=== PATIENT | female | born 1990 | race Caucasian/White ===

== ENCOUNTER 2017-09-29 05:30 | Inpatient (IN) | payer BC ==
--- NOTE | 2017-09-27 09:45 | PCM.LDHP ---
L&D History of Present Illness - General Date of Service: 09/27/17 Admit Problem/Dx: Admission Diagnosis/Problem Admission Diagnosis/Problem Source of Information: Patient History Limitations: Reports: No Limitations - History of Present Illness Introduction:: 27 y/o JOHANN 10/05/2017 EGA at time of CS Wednesday09/29/2017 [id number]. Plan RCS 09/29/17. Two prior CS's. GBS status unknown but giving preop antibiotics Ancef which will cover GBS as well, just in case. 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: prior CS 04/05/2013 Psychiatric History: Reports: Anxiety - Past Surgical History Female Surgical History: Reports: Section Social & Family History - Tobacco Use Smoking Status *Q: Current Every Day Smoker Years of Tobacco use: 10 Packs/Tins Daily: 0.5 Used Tobacco, but Quit: Yes Month/Year Tobacco Last Used: 06/07/2013 Second Hand Smoke Exposure: Yes - Alcohol Use Days Per Week of Alcohol Use: 3 Number of Drinks Per Day: 2 Total Drinks Per Week: 6 - Recreational Drug Use Recreational Drug Use: No - Living Situation & Occupation Living situation: Reports: , with Family Occupation: Employed H&P Review of Systems - Review of Systems: Review Of Systems: See Below General: Reports: No Symptoms HEENT: Reports: No Symptoms Pulmonary: Reports: No Symptoms Cardiovascular: Reports: No Symptoms Gastrointestinal: Reports: No Symptoms Genitourinary: Reports: No Symptoms Musculoskeletal: Reports: No Symptoms Skin: Reports: No Symptoms Psychiatric: Reports: No Symptoms Neurological: Reports: No Symptoms Hematologic/Lymphatic: Reports: No Symptoms Immunologic: Reports: No Symptoms L&D Exam - Exam Exam: See Below - OB Specific Fundal Height In cm: 39 Movement: Active Heart Tones: Present Heart Tones per Min: 128 Heart Rate (FHR) Variability: Moderate (6-25 bmp) Presentation: Vertex - Exam General: Alert, Oriented HEENT: Conjunctiva Clear, Mucosa Moist & [place], PERRLA Neck: Supple, Trachea Midline Lungs: Clear to Auscultation, Normal Respiratory Effort Cardiovascular: Regular Rate, Regular Rhythm GI/Abdominal Exam: Normal Bowel Sounds, Soft, Non-Tender Back Exam: Normal Inspection, Full Range of Motion Extremities: Normal Inspection, Normal Range of Motion, Non-Tender, No Pedal Edema, Normal Capillary Refill Skin: Warm, Dry, Intact Neurological: Reflexes Equal Bilateral Psychiatric: Alert, Normal Affect, Normal Mood - Problem List (1) 39 weeks gestation of SNOMED Code(s): 36938726 ICD Code: Z3A.39 - 39 WEEKS GESTATION OF Status: Acute (2) delivery w/o mention of indication, love gordon SNOMED Code(s): 774868020 ICD Code: O82 - ENCOUNTER FOR DELIVERY WITHOUT INDICATION Status: Acute Problem List Initiated/Reviewed/Updated: No Assessment/Plan Comment:: Plan repeat CS
[~2017-09-29 05:30] MED LIST: Citric Acid/Sodium Citrate Solution 30 ML Cup PO ONE; Metoclopramide 10 MG/2 ML SDV IVPUSH ONE; Sodium Chloride 0.9% 10 ML Syringe FLUSH PRN
[2017-09-29] MEDS: Lactated Ringers 1,000 ML IV SCH ×2 (06:40→07:27)
[2017-09-29] MEDS ORDERED: Morphine PF 10 MG/10 ML SDV ONE (06:46)
[2017-09-29] MEDS ORDERED: Ondansetron 4 MG/2 ML SDV ONE (06:46)
[2017-09-29] MEDS ORDERED: Oxytocin 10 Units/1 ML SDV ONE (06:46)
[2017-09-29] MEDS ORDERED: Ketorolac 30 MG/ML SDV ONE (06:46)
[2017-09-29] MEDS ORDERED: Lactated Ringers 2,000 ML ONE (06:46)
[2017-09-29] MEDS ORDERED: ceFAZolin 1 GM Vial ONE (06:46)
[2017-09-29] MEDS ORDERED: Bupivacaine 0.75%/D5W 2 ML Amp ONE (06:48)
[2017-09-29] MEDS ORDERED: Bupivacaine 0.5% 30 ML SDV ONE (07:05)
--- NOTE | 2017-09-29 07:15 | PCM.PREANE ---
Preanesthetic Assessment - Anesthesia/Transfusion/Family Hx Anesthesia History: Prior Anesthesia Reaction Type of Anesthesia Reaction: Excessive Itching Family History of Anesthesia Reaction: No Transfusion History: No Prior Transfusion(s) - Review of Systems General: No Symptoms Pulmonary: No Symptoms, Other (Smoker. Last one this morning. ) Cardiovascular: No Symptoms Gastrointestinal: No Symptoms Neurological: Other (Back pain) Other: Reports: Anxiety - Physical Assessment NPO Status Date: 09/28/17 NPO Status Time: 23:59 Pulse: 114 O2 Sat by Pulse Oximetry: 100 Respiratory Rate: 15 Blood Pressure: 102/79 Temperature: 36.6 C Vital Signs: Last Vital Signs Temp 36.6 C 09/29/17 05:45 Pulse 114 H 09/29/17 05:45 Resp 15 09/29/17 05:45 BP 102/79 09/29/17 05:45 Pulse Ox 100 09/29/17 05:45 Weight: 53.07 kg ASA Class: 2 Mental Status: Alert & Oriented x3 Airway Class: Mallampati = 1 Dentition: Reports: Normal Dentition Thyro-Mental Finger Breadths: 3 Mouth Opening Finger Breadths: 3 ROM/Head Extension: Full Lungs: Clear to Auscultation, Normal Respiratory Effort Cardiovascular: Regular Rhythm, Tachycardia - Lab Values: Laboratory Last Values WBC 9.22 K/mm3 (3.98-10.04) 09/29/17 05:45 RBC 3.66 M/mm3 (3.98-5.22) L 09/29/17 05:45 Hgb 10.4 gm/L (11.2-15.7) L 09/29/17 05:45 Hct 33.0 % (34.1-44.9) L 09/29/17 05:45 MCV 90.2 fl (79.4-94.8) 09/29/17 05:45 MCH 28.4 pg (25.6-32.2) 09/29/17 05:45 MCHC 31.5 g/dl (32.2-35.5) L 09/29/17 05:45 RDW Std Deviation 43.1 fL (36.4-46.3) 09/29/17 05:45 Plt Count 402 K/mm3 (182-369) H 09/29/17 05:45 MPV 10.3 fl (9.4-12.3) 09/29/17 05:45 Blood Type A POSITIVE 09/29/17 05:45 Gel Antibody Screen Negative 09/29/17 05:45 - Allergies Allergies/Adverse Reactions: Allergies Allergy/AdvReac Type Severity Reaction Status Date / Time No Known Allergies Allergy Verified 11/14/15 07:24 - Blood Blood Available: Yes Product(s) Available: PRBC - Anesthesia Plan Pre-Op Medication Ordered: Antacids - Acknowledgements Anesthesia Type Planned: Spinal Pt an Appropriate Candidate for the Planned Anesthesia: Yes Alternatives and Risks of Anesthesia Discussed w Pt/Guardian: Yes Pt/Guardian Understands and Agrees with Anesthesia Plan: Yes PreAnesthesia Questionnaire - Past Health History Medical/Surgical History: Denies 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: prior CS 04/05/2013 Psychiatric History: Reports: Anxiety - Past Surgical History Female Surgical History: Reports: Section - SUBSTANCE USE Smoking Status *Q: Current Every Day Smoker Tobacco Use Within Last Twelve Months: Cigarettes Second Hand Smoke Exposure: Yes Days Per Week of Alcohol Use: 3 Number of Drinks Per Day: 2 Total Drinks Per Week: 6 Recreational Drug Use History: No - HOME MEDS Home Medications: Home Meds Acetaminophen [Tylenol] 325 mg PO Q6H #50 tablet 03/07/15 [Rx] - CURRENT (IN HOUSE) MEDS Current Meds: Current Medications Cefazolin Sodium/Dextrose 2 gm (/ Premix) 50 mls @ 100 mls/hr IV ONETIME ONE Stop: 09/29/17 07:59 Lactated Ringer's (Ringers, Lactated) 1,000 mls @ 125 mls/hr IV ASDIRECTED AIDEN Last Admin: 09/29/17 06:40 Dose: 125 mls/hr Oxytocin 20 unit/ Lactated (Ringer's) 1,002 mls @ 1,503 mls/hr IV TITRATE AIDEN; Protocol Sodium Chloride (Saline Flush) 10 ml FLUSH ASDIRECTED PRN PRN Reason: Keep Vein Open Discontinued Medications Bupivacaine HCl (Marcaine 0.5%) Confirm Administered Dose 30 ml .ROUTE .STK-MED ONE Stop: 09/29/17 07:06 Bupivacaine HCl/Dextrose (Marcaine 0.75% Spinal) Confirm Administered Dose 2 ml .ROUTE .STK-MED ONE Stop: 09/29/17 06:49 Cefazolin Sodium (Ancef) Confirm Administered Dose 2 gm .ROUTE .STK-MED ONE Stop: 09/29/17 06:47 Citric Acid/Sodium Citrate (Bicitra Solution) 30 ml PO ONETIME ONE Stop: 09/29/17 05:31 Lactated Ringer's (Ringers, Lactated) Confirm Administered Dose 2,000 mls @ as directed .ROUTE .STK-MED ONE Stop: 09/29/17 06:47 Ketorolac Tromethamine (Toradol) Confirm Administered Dose 30 mg .ROUTE .STK- MED ONE Stop: 09/29/17 06:47 Metoclopramide HCl (Reglan) 10 mg IVPUSH ONETIME ONE Stop: 09/29/17 05:31 Morphine Sulfate (Duramorph Pf) Confirm Administered Dose 10 mg .ROUTE .STK-MED ONE Stop: 09/29/17 06:47 Ondansetron HCl (Zofran) Confirm Administered Dose 4 mg .ROUTE .STK-MED ONE Stop: 09/29/17 06:47 Oxytocin (Pitocin) Confirm Administered Dose 20 unit .ROUTE .STK-MED ONE Stop: 09/29/17 06:47
[2017-09-29] MEDS ORDERED: ceFAZolin 2 GM in Premix Bag 1 BAG IV ONE (07:30)
[2017-09-29] MEDS ORDERED: ePHEDrine 50 MG/ML SDV IVPUSH PRN ×2 (08:14→09:51)
[2017-09-29] MEDS ORDERED: diphenhydrAMINE 50 MG/ML SDV IVPUSH PRN ×2 (08:14→09:51)
[2017-09-29] MEDS ORDERED: Meperidine PF 50 MG/ML Syringe IVPUSH PRN (08:14)
--- NOTE | 2017-09-29 08:32 | PCM.OPNOTE ---
- General Post-Op/Procedure Note Date of Surgery/Procedure: 09/29/17 Operative Procedure(s): Repeat low segment transverse Pre Op Diagnosis: Repeat 39+ weeks gestation (third ) Post-Op Diagnosis: Same Anesthesia Technique: Spinal Primary Surgeon: Alan Peraza Secondary Surgeon: Enrico Diaz Anesthesia Provider: Lashawn Ignacio Reason Business Integration Analyst Was Necessary: Decrease co-morbidity and co-mortality and retraction and difficult surgery Role of Business Integration Analyst: Decrease co-morbidity and co-mortality and retraction and difficult surgery Fluid Replacement, Intraop: 2,500 Output, Urine Amount: 400 EBL in mLs: 700 Drain/Tube Comments:: dhaliwal Complications: None Condition: Good Free Text/Narrative:: Intake & Output 09/28/17 09/29/17 09/29/17 22:59 06:59 14:59 Intake Total 1000 Balance 1000 Patient was transported to operating room. Placed under spinal anesthesia in the supine position with a wedge under the right hip right flank. SCDs in place and functioning prior to surgery. Ancef 2 g given intravenously prior surgery. Dhaliwal catheter placed gravity drainage. Vaginal prep performed. Abdominal prep performed. Timeout performed confirming name, date of and procedure as repeat section. Patient having been prepared and draped in a sterile fashion adequate level of anesthesia was confirmed. Patient's brought to the operating room. Injecting the area of the planned incision with 20 mL of 0.5% Marcaine without epinephrine. Pfannenstiel incision was made removing the old scar and care was sharp section to into the anterior fascia peritoneal cavity was entered without difficulty. Bladder flap created pushed caudad. Low segment transverse performed amnionic fluid clear upon entry into the amnionic cavity. Female liveborn delivered on Wednesday at 0753 hrs. Apgars 9/[address] Reyes grocery supervisor in attendance and cared for the . Cord blood collected from three-vessel cord. Placenta removed manually. Endometrial cavity inspected and additional membranes removed. Cervical patency was assured. The sponge needle pack and instrument count correct times one. The uterine incision closed in 2 layers first layer running locking suture of 0 Monocryl. Second layer horizontal imbricating modified Lembert closure. Both tubes and ovaries were normal. Clots were cleaned from the gutters and cul-de-sac. The uterine incision reinspected after uterus replaced into the abdominal cavity. Incision showed no bleeding. Sponge needle pack asthma sharp count correct 2 and the abdominal cavity was closed with #1 PDS for the anterior fascia. Relaxing cautery done in the subcutaneous tissue to allow approximation of the skin edges. The subcutaneous tissue was approximated with 0 Monocryl sutures horizontally placed 5. Irrigation carried out. The skin again was closed with subcuticular 3-0 Monocryl on Bautista needle. Dermabond Preneo applied. Clots were cleaned from the vagina at the end of the procedure. Patient transported postanesthesia care unit in satisfactory condition no blood transfusions were required.
--- NOTE | 2017-09-29 08:33 | PCM.POSTAN ---
POST ANESTHESIA ASSESSMENT - MENTAL STATUS Mental Status: Alert, Oriented - VITAL SIGNS Pulse Rate: 78 SaO2: 100 Resp Rate: 17 Blood Pressure: 105/66 Temperature: 97.4 C - RESPIRATORY Respiratory Status: Respiratory Rate WNL, Airway Patent, O2 Saturation Stable, Supplemental Oxygen - CARDIOVASCULAR CV Status: Pulse Rate WNL, Blood Pressure Stable - GASTROINTESTINAL GI Status: No Symptoms - PAIN Pain Score: 0 - POST OP HYDRATION Hydration Status: Adequate & Stable
[2017-09-29] MEDS ORDERED: Naloxone 0.4 MG/ML SDV IVPUSH PRN (09:51)
[2017-09-29] MEDS ORDERED: Lanolin 100% Cream 7 GM Tube TOP PRN (09:51)
[2017-09-29] MEDS ORDERED: Acetaminophen/oxyCODONE 325-5 MG Tab PO PRN (09:51)
[2017-09-29] MEDS ORDERED: Sodium Chloride 0.9% 10 ML Syringe FLUSH PRN (09:51)
[2017-09-29] MEDS ORDERED: Docusate Sodium 100 MG Cap PO PRN (09:51)
[2017-09-29] MEDS ORDERED: Acetaminophen 325 MG Tab PO PRN (09:51)
[2017-09-29] MEDS ORDERED: Dextrose 5%-Lactated Ringers 1,000 ML IV SCH (09:51)
[2017-09-29] MEDS ORDERED: Ondansetron 4 MG/2 ML SDV IV PRN (09:51)
[2017-09-29] MEDS ORDERED: Phenylephrine/Normal Saline 100 MCG/ML 10 ML Syringe ONE (09:54)
[2017-09-29] MEDS ORDERED: fentaNYL 100 MCG/2 ML SDV ONE (09:54)
[2017-09-29] MEDS: Simethicone 80 MG Tab.Chew PO SCH ×5 (12:18→22:15)
[2017-09-29] MEDS: Ketorolac 30 MG/ML SDV IVPUSH SCH ×2 (13:48→20:39)
[2017-09-30] MEDS: Acetaminophen/Codeine 300-30 MG Tab PO PRN ×3 (00:51→20:16)
[2017-09-30] MEDS: Ketorolac 30 MG/ML SDV IVPUSH SCH (03:43)
--- NOTE | 2017-09-30 08:02 | PCM.SN ---
- Free Text/Narrative Note: Postop day #1 Patient is afebrile no heavy vaginal bleeding no complaints ambulating without difficulty hemoglobin preop 10+ this morning 7.2 patient is asymptomatic but I did discuss with her the possibility of blood transfusion if she become symptomatic. Talked about possibility of finding to make sure that if she feels faint she sits down immediately take Showers not hot showers patient will pay attention to her symptoms if any today and notify nurse and we'll consider blood transfusion if necessary. Repeat CBC ordered for in a.m. Incision appears normal today. No leg cramping.
--- NOTE | 2017-09-30 08:13 | PCM48HPAN ---
Post Anesthesia Note - EVALUATION WITHIN 48HRS OF ANESTHETIC Vital Signs in Normal Range: Yes Patient Participated in Evaluation: Yes Respiratory Function Stable: Yes Airway Patent: Yes Cardiovascular Function Stable: Yes Hydration Status Stable: Yes Pain Control Satisfactory: Yes Nausea and Vomiting Control Satisfactory: Yes Mental Status Recovered: Yes Blood Pressure: 101/58 - COMMENTS/OBSERVATIONS Free Text/Narrative:: Tory has been up walking around. No complaints of headache or back pain. Her hemoglobin is 7.2 mg/dl Dr. Peraza aware. Repeat CBC ordered for the morning.
[2017-09-30] MEDS: Simethicone 80 MG Tab.Chew PO SCH ×4 (09:48→21:12)
[2017-09-30] MEDS: Ibuprofen 600 MG Tab PO PRN ×2 (12:50→17:23)
[2017-09-30 15:36] VITALS: BP 110/75
[2017-10-01] MEDS: Ibuprofen 600 MG Tab PO PRN ×2 (01:01→07:06)
--- NOTE | 2017-10-01 07:26 | PCM.DCSUM1 ---
Discharge Summary - Hospital Course Free Text/Narrative:: [facility] Post-Op/Procedure Note Patient Name: LOREN MIGUEL Date of : 89 Patient Status: Inpatient Attending Provider: Alan Peraza Date: 09/29/17 08:24 Initialization Date: 09/29/17 08:24 - General Post-Op/Procedure Note Date of Surgery/Procedure: 09/29/17 Operative Procedure(s): Repeat low segment transverse Pre Op Diagnosis: Repeat 39+ weeks gestation (third ) Post-Op Diagnosis: Same Anesthesia Technique: Spinal Primary Surgeon: Alan Peraza Secondary Surgeon: Enrico Diaz Anesthesia Provider: Lashawn Ignacio Reason Return Checker Was Necessary: Decrease co-morbidity and co-mortality and retraction and difficult surgery Role of Return Checker: Decrease co-morbidity and co-mortality and retraction and difficult surgery Fluid Replacement, Intraop: 2,500 Output, Urine Amount: 400 EBL in mLs: 700 Drain/Tube Comments:: dhaliwal Complications: None Condition: Good Free Text/Narrative:: Intake & Output 09/28/17 09/29/17 09/29/17 22:59 06:59 14:59 Intake Total 1000 Balance 1000 Patient was transported to operating room. Placed under spinal anesthesia in the supine position with a wedge under the right hip right flank. SCDs in place and functioning prior to surgery. Ancef 2 g given intravenously prior surgery. Dhaliwal catheter placed gravity drainage. Vaginal prep performed. Abdominal prep performed. Timeout performed confirming name, date of and procedure as repeat section. Patient having been prepared and draped in a sterile fashion adequate level of anesthesia was confirmed. Patient's brought to the operating room. Injecting the area of the planned incision with 20 mL of 0.5% Marcaine without epinephrine. Pfannenstiel incision was made removing the old scar and care was sharp section to into the anterior fascia peritoneal cavity was entered without difficulty. Bladder flap created pushed caudad. Low segment transverse performed amnionic fluid clear upon entry into the amnionic cavity. Female liveborn delivered on Wednesday at 0753 hrs. Apgars 9/[address] Reyes nurse behavioral health care in attendance and cared for the . Cord blood collected from three-vessel cord. Placenta removed manually. Endometrial cavity inspected and additional membranes removed. Cervical patency was assured. The sponge needle pack and instrument count correct times one. The uterine incision closed in 2 layers first layer running locking suture of 0 Monocryl. Second layer horizontal imbricating modified Lembert closure. Both tubes and ovaries were normal. Clots were cleaned from the gutters and cul-de-sac. The uterine incision reinspected after uterus replaced into the abdominal cavity. Incision showed no bleeding. Sponge needle pack asthma sharp count correct 2 and the abdominal cavity was closed with #1 PDS for the anterior fascia. Relaxing cautery done in the subcutaneous tissue to allow approximation of the skin edges. The subcutaneous tissue was approximated with 0 Monocryl sutures horizontally placed 5. Irrigation carried out. The skin again was closed with subcuticular 3-0 Monocryl on Bautista needle. Dermabond Preneo applied. Clots were cleaned from the vagina at the end of the procedure. Patient transported postanesthesia care unit in satisfactory condition no blood transfusions were required. HPI Initial Comments: [facility] Post-Op/Procedure Note Patient Name: LOREN MIGUEL Date of : 89 Patient Status: Inpatient Attending Provider: Alan Peraza Date: 09/29/17 08:24 Initialization Date: 09/29/17 08:24 - General Post-Op/Procedure Note Date of Surgery/Procedure: 09/29/17 Operative Procedure(s): Repeat low segment transverse Pre Op Diagnosis: Repeat 39+ weeks gestation (third ) Post-Op Diagnosis: Same Anesthesia Technique: Spinal Primary Surgeon: Alan Peraza Secondary Surgeon: Enrico Diaz Anesthesia Provider: Lashawn Ignacio Reason Return Checker Was Necessary: Decrease co-morbidity and co-mortality and retraction and difficult surgery Role of Return Checker: Decrease co-morbidity and co-mortality and retraction and difficult surgery Fluid Replacement, Intraop: 2,500 Output, Urine Amount: 400 EBL in mLs: 700 Drain/Tube Comments:: dhaliwal Complications: None Condition: Good Free Text/Narrative:: Intake & Output 09/28/17 09/29/17 09/29/17 22:59 06:59 14:59 Intake Total 1000 Balance 1000 Patient was transported to operating room. Placed under spinal anesthesia in the supine position with a wedge under the right hip right flank. SCDs in place and functioning prior to surgery. Ancef 2 g given intravenously prior surgery. Dhaliwal catheter placed gravity drainage. Vaginal prep performed. Abdominal prep performed. Timeout performed confirming name, date of and procedure as repeat section. Patient having been prepared and draped in a sterile fashion adequate level of anesthesia was confirmed. Patient's brought to the operating room. Injecting the area of the planned incision with 20 mL of 0.5% Marcaine without epinephrine. Pfannenstiel incision was made removing the old scar and care was sharp section to into the anterior fascia peritoneal cavity was entered without difficulty. Bladder flap created pushed caudad. Low segment transverse performed amnionic fluid clear upon entry into the amnionic cavity. Female liveborn delivered on Wednesday at 0753 hrs. Apgars 9/[address] weight [address] Reyes nurse behavioral health care in attendance and cared for the . Cord blood collected from three-vessel cord. Placenta removed manually. Endometrial cavity inspected and additional membranes removed. Cervical patency was assured. The sponge needle pack and instrument count correct times one. The uterine incision closed in 2 layers first layer running locking suture of 0 Monocryl. Second layer horizontal imbricating modified Lembert closure. Both tubes and ovaries were normal. Clots were cleaned from the gutters and cul-de-sac. The uterine incision reinspected after uterus replaced into the abdominal cavity. Incision showed no bleeding. Sponge needle pack asthma sharp count correct 2 and the abdominal cavity was closed with #1 PDS for the anterior fascia. Relaxing cautery done in the subcutaneous tissue to allow approximation of the skin edges. The subcutaneous tissue was approximated with 0 Monocryl sutures horizontally placed 5. Irrigation carried out. The skin again was closed with subcuticular 3-0 Monocryl on Bautista needle. Dermabond Preneo applied. Clots were cleaned from the vagina at the end of the procedure. Patient transported postanesthesia care unit in satisfactory condition no blood transfusions were required. Brief History: [facility] . Post-Op/Procedure Note. [facility]: [id number]. Date of : 89Patient Status: Inpatient. Attending Provider: Alan Peraza Number: [id number]. Date: 09/29/17 08:24Initialization Date: 08:24. - General Post-Op/Procedure Note. Date of Surgery/Procedure: . Operative Procedure(s): Repeat low segment transverse . Pre Op Diagnosis: Repeat 39+ weeks gestation (third ). Post-Op Diagnosis: Same. Anesthesia Technique: Spinal. Primary Surgeon: Alan Peraza. Secondary Surgeon: Enrico Diaz. Anesthesia Provider: Lashawn Ignacio. Reason Return Checker Was Necessary: Decrease co-morbidity and co- mortality and retraction and difficult surgery. Role of Return Checker: Decrease co -morbidity and co-mortality and retraction and difficult surgery. Fluid Replacement, Intraop: 2,500. Output, Urine Amount: 400. EBL in mLs: 700. Drain/Tube Comments:: dhaliwal. Complications: None. Condition: Good. Free Text/ Narrative:: Intake & Output. 09/29/1803. [id number]. Intake [id number]. [id number]. Patient was transported to operating room. Placed under spinal anesthesia in the supine position with a wedge under the right hip right flank. SCDs in place and functioning prior to surgery. Ancef 2 g given intravenously prior surgery. Dhaliwal catheter placed gravity drainage. Vaginal prep performed. Abdominal prep performed. Timeout performed confirming name, date of and procedure as repeat section. Patient having been prepared and draped in a sterile fashion adequate level of anesthesia was confirmed. Patient's brought to the operating room. Injecting the area of the planned incision with 20 mL of 0.5% Marcaine without epinephrine. Pfannenstiel incision was made removing the old scar and care was sharp section to into the anterior fascia peritoneal cavity was entered without difficulty. Bladder flap created pushed caudad. Low segment transverse performed amnionic fluid clear upon entry into the amnionic cavity. Female liveborn delivered on Wednesday at 0753 hrs. Apgars 9/[address] weight [address] Reyes nurse behavioral health care in attendance and cared for the . Cord blood collected from three-vessel cord. Placenta removed manually. Endometrial cavity inspected and additional membranes removed. Cervical patency was assured. The sponge needle pack and instrument count correct times one. The uterine incision closed in 2 layers first layer running locking suture of 0 Monocryl. Second layer horizontal imbricating modified Lembert closure. Both tubes and ovaries were normal. Clots were cleaned from the gutters and cul-de-sac. The uterine incision reinspected after uterus replaced into the abdominal cavity. Incision showed no bleeding. Sponge needle pack asthma sharp count correct 2 and the abdominal cavity was closed with #1 PDS for the anterior fascia. Relaxing cautery done in the subcutaneous tissue to allow approximation of the skin edges. The subcutaneous tissue was approximated with 0 Monocryl sutures horizontally placed 5. Irrigation carried out. The skin again was closed with subcuticular 3-0 Monocryl on Bautista needle. Dermabond Preneo applied. Clots were cleaned from the vagina at the end of the procedure. Patient transported postanesthesia care unit in satisfactory condition no blood transfusions were required. - Discharge Data Discharge Date: 10/01/17 Discharge Disposition: Home, Self-Care 01 Condition: Good - Discharge Diagnosis/Problem(s) (1) 39 weeks gestation of SNOMED Code(s): 27573460 ICD Code: Z3A.39 - 39 WEEKS GESTATION OF Status: Acute Current Visit: No (2) delivery w/o mention of indication, delnora, curr hospitaliz SNOMED Code(s): 358371421 ICD Code: O82 - ENCOUNTER FOR DELIVERY WITHOUT INDICATION Status: Acute Current Visit: No (3) Anemia in , delivered, with complication, current hospitalization SNOMED Code(s): 057377714 ICD Code: O99.03 - ANEMIA COMPLICATING THE PUERPERIUM Status: Acute Current Visit: Yes - Patient Summary/Data Operative Procedure(s) Performed: Repeat low segment transverse Complications: Anemia continuing from her antepartum condition. The globe and 7.6 patient declined blood transfusion we will treat with vitamins at breakfast iron and vitamin C at lunch and supper. Consults: None Hospital Course: Uneventful except for the aforementioned anemia - Patient Instructions Diet: Regular Diet as Tolerated Driving: Do Not Drive (x2 weeks) Showering/Bathing: May Shower, No Tub Bathing/Swimming Wound/Incision Care: Keep Operative Site/Wound Site Clean and Dry Notify Provider of: Fever, Increased Pain, Swelling and Redness, Drainage, Nausea and/or Vomiting - Discharge Plan Prescriptions/Med Rec: Iron,Carbonyl/Ascorbic Acid [Iron 100-Vitamin C Tablet] 1 each PO BID #100 tablet Vit with Ca/FA/Iron [ Plus Iron] 1 tab PO DAILY #100 tab Home Medications: Home Meds Acetaminophen [Tylenol] 325 mg PO Q6H #50 tablet 03/07/15 [Rx] Docusate Sodium [Colace] 100 mg PO Q12H PRN cap 10/01/17 [Rx] Ibuprofen [IJD: Ibuprofen] 600 mg PO Q6H PRN tablet 10/01/17 [Rx] Iron,Carbonyl/Ascorbic Acid [Iron 100-Vitamin C Tablet] 1 each PO BID #100 tablet 10/01/17 [Rx] Lanolin [Lansinoh HPA] 1 applic TOP ASDIRECTED PRN tube 10/01/17 [Rx] Vit with Ca/FA/Iron [ Plus Iron] 1 tab PO DAILY #100 tab [Rx] Patient Handouts: Steps to Quit Smoking - Discharge Summary/Plan Comment DC Time >30 min.: No - Patient Data Vitals - Most Recent: Last Vital Signs Temp 98.4 F 09/30/17 15:35 Pulse 84 09/30/17 15:35 Resp 16 09/30/17 15:35 BP 110/75 09/30/17 15:35 Pulse Ox 100 09/30/17 15:35 Weight - Most Recent: 117 lb I&O - Last 24 hours: Intake & Output 09/30/17 10/01/17 10/01/17 22:59 06:59 14:59 Intake Total 0 Balance 0 Lab Results - Last 24 hrs: Laboratory Results - last 24 hr 09/30/17 09/30/17 10/01/17 Range/Units 05:54 13:00 05:49 WBC 10.37 H 9.58 (3.98-10.04) K/mm3 RBC 2.64 L 2.69 L (3.98-5.22) M/mm3 Hgb 7.6 L 7.6 L (11.2-15.7) gm/L Hct 24.2 L 24.5 L (34.1-44.9) % MCV 91.7 91.1 (79.4-94.8) fl MCH 28.8 28.3 (25.6-32.2) pg MCHC 31.4 L 31.0 L (32.2-35.5) g/dl RDW Std Deviation 43.2 43.5 (36.4-46.3) fL Plt Count 337 328 (182-369) K/mm3 MPV 9.6 10.3 (9.4-12.3) fl Neut % (Auto) 76.9 H (34.0-71.1) % Lymph % (Auto) 17.5 L (19.3-51.7) % Glascock % (Auto) 4.1 L (4.7-12.5) % Eos % (Auto) 1.0 (0.7-5.8) Baso % (Auto) 0.2 (0.1-1.2) % Neut # (Auto) 7.98 H (1.56-6.13) K/mm3 Lymph # (Auto) 1.81 (1.18-3.74) K/mm3 Glascock # (Auto) 0.43 H (0.24-0.36) K/mm3 Eos # (Auto) 0.10 (0.04-0.36) K/mm3 Baso # (Auto) 0.02 (0.01-0.08) K/mm3 Manual Slide Review Abnormal smear Abnormal smear Med Orders - Current: Current Medications Acetaminophen (Tylenol) 650 mg PO Q4H PRN PRN Reason: mild pain or fever Acetaminophen/Codeine Phosphate (Tylenol With Codeine No.3 300mg/30mg) 2 tab PO Q4H PRN PRN Reason: Pain Last Admin: 09/30/17 20:16 Dose: 2 tab Diphenhydramine HCl (Benadryl) 25 mg IVPUSH Q6H PRN PRN Reason: Itching or Nausea Docusate Sodium (Colace) 100 mg PO Q12H PRN PRN Reason: Constipation Emollient Ointment (Lansinoh Hpa) 0 gm TOP ASDIRECTED PRN PRN Reason: Sore Nipples Ephedrine Sulfate (Ephedrine Sulfate) 5 mg IVPUSH SEECOMMENT PRN PRN Reason: Other Ibuprofen (Motrin) 600 mg PO Q6H PRN PRN Reason: mild pain or fever Last Admin: 10/01/17 07:06 Dose: 600 mg Naloxone HCl (Narcan) 0.1 mg IVPUSH SEECOMMENT PRN PRN Reason: Respiratory Depression Ondansetron HCl (Zofran) 4 mg IV Q8H PRN PRN Reason: Nausea/Vomiting Oxycodone/Acetaminophen (Percocet 325-5 Mg) 1 tab PO Q4H PRN PRN Reason: Pain (moderate 4-6) Simethicone (Simethicone) 80 mg PO PCBED AIDEN Last Admin: 09/30/17 21:12 Dose: 80 mg Sodium Chloride (Saline Flush) 10 ml FLUSH ASDIRECTED PRN PRN Reason: Keep Vein Open Discontinued Medications Bupivacaine HCl (Marcaine 0.5%) Confirm Administered Dose 30 ml .ROUTE .STK-MED ONE Stop: 09/29/17 07:06 Last Admin: 09/29/17 07:49 Dose: 20 ml Bupivacaine HCl/Dextrose (Marcaine 0.75% Spinal) Confirm Administered Dose 2 ml .ROUTE .STK-MED ONE Stop: 09/29/17 06:49 Cefazolin Sodium (Ancef) Confirm Administered Dose 2 gm .ROUTE .STK-MED ONE Stop: 09/29/17 06:47 Citric Acid/Sodium Citrate (Bicitra Solution) 30 ml PO ONETIME ONE Stop: 09/29/17 05:31 Last Admin: 09/29/17 07:27 Dose: 30 ml Diphenhydramine HCl (Benadryl) 25 mg IVPUSH Q6H PRN PRN Reason: Pruritis Stop: 09/29/17 10:30 Ephedrine Sulfate (Ephedrine Sulfate) 5 mg IVPUSH ASDIRECTED PRN PRN Reason: Hypotension Stop: 09/29/17 10:30 Fentanyl (Sublimaze) Confirm Administered Dose 100 mcg .ROUTE .STK-MED ONE Stop: 09/29/17 09:55 Cefazolin Sodium/Dextrose 2 gm (/ Premix) 50 mls @ 100 mls/hr IV ONETIME ONE Stop: 09/29/17 07:59 Last Admin: 09/29/17 12:18 Dose: Not Given Lactated Ringer's (Ringers, Lactated) 1,000 mls @ 125 mls/hr IV ASDIRECTED AIDEN Last Admin: 09/29/17 07:27 Dose: 125 mls/hr Oxytocin 20 unit/ Lactated (Ringer's) 1,002 mls @ 1,503 mls/hr IV TITRATE AIDEN; Protocol Lactated Ringer's (Ringers, Lactated) Confirm Administered Dose 2,000 mls @ as directed .ROUTE .STK-MED ONE Stop: 09/29/17 06:47 Dextrose/Lactated Ringer's (Dextrose 5%-Lactated Ringers) 1,000 mls @ 125 mls/ hr IV ASDIRECTED AIDEN Stop: 09/29/17 17:50 Last Admin: 09/29/17 12:17 Dose: 125 mls/hr Ketorolac Tromethamine (Toradol) Confirm Administered Dose 30 mg .ROUTE .STK- MED ONE Stop: 09/29/17 06:47 Ketorolac Tromethamine (Toradol) 30 mg IVPUSH Q6H [facility] Stop: 09/30/17 02:16 Last Admin: 09/30/17 03:43 Dose: 30 mg Meperidine HCl (Demerol) 12.5 mg IVPUSH ONETIME PRN PRN Reason: Shivering Stop: 09/29/17 10:30 Metoclopramide HCl (Reglan) 10 mg IVPUSH ONETIME ONE Stop: 09/29/17 05:31 Last Admin: 09/29/17 07:28 Dose: 10 mg Morphine Sulfate (Duramorph Pf) Confirm Administered Dose 10 mg .ROUTE .STK-MED ONE Stop: 09/29/17 06:47 Ondansetron HCl (Zofran) Confirm Administered Dose 4 mg .ROUTE .STK-MED ONE Stop: 09/29/17 06:47 Oxytocin (Pitocin) Confirm Administered Dose 20 unit .ROUTE .STK-MED ONE Stop: 09/29/17 06:47 Phenylephrine HCl (Phenylephrine In Ns 100 Mcg/Ml) Confirm Administered Dose 1 mg .ROUTE .STK-MED ONE Stop: 09/29/17 09:55 Sodium Chloride (Saline Flush) 10 ml FLUSH ASDIRECTED PRN PRN Reason: Keep Vein Open
== END 2017-10-01 08:34 | disposition home or self-care (01) | DRG 540 ==
LOC: JD.OB 05:30
PROVIDERS: ADMIT Obstetrics & Gynecology; ATTEND Obstetrics & Gynecology
PROC: 6A550ZT Pheresis of Cord Blood Stem Cells, Single (ICD-10-PCS; principal; 2017-09-29)
PROC: 10D00Z1 Extraction of Products of Conception, Low, Open Approach (ICD-10-PCS; principal; 2017-09-29)
DX: O34.211 Maternal care for low transverse scar from previous cesarean delivery (principal); N85.8 Other specified noninflammatory disorders of uterus; Z3A.39 39 weeks gestation of pregnancy; Z37.0 Single live birth; O99.334 Smoking (tobacco) complicating childbirth; F17.210 Nicotine dependence, cigarettes, uncomplicated; O90.81 Anemia of the puerperium; D64.9 Anemia, unspecified; Z53.29 Procedure and treatment not carried out because of patient's decision for other reasons
CPT/HCPCS: 36415; 59025; 85025; 85027; 86850; 86900; 86901; 94762; A9270-GY; J0690; J1885; J2270; J2405; J2590; J2765; J3010; J7042; J7120